=== PATIENT | female | born 1940 | race Caucasian/White ===

== ENCOUNTER 2021-06-03 15:58 | Emergency (ER) | payer MEDICARE ==
[~2021-06-03] VITALS: Ht 165.1 cm; Wt 54.5 kg
[2021-06-03 16:24] VITALS: BP 132/62
[2021-06-03 16:55] LABS: BASOPHILS % (AUTO) 0.4 % (0-1); EOSINOPHILS % (AUTO) 0.1 % (0-6); HEMATOCRIT 32.1 % (35.0-45.0); LYMPHOCYTES # (AUTO) 0.8 X10'3 (1.1-4.8); LYMPHOCYTES % (AUTO) 10.1 % (21-51); MEAN CORPUSCULAR HEMOGLOBIN 31.9 PG (27.0-31.0); MEAN CORPUSCULAR HGB CONC 34.4 g/dL (33.0-36.5); MEAN CORPUSCULAR VOLUME 92.9 FL (78-98); MEAN PLATELET VOLUME 8.1 FL (7.4-10.4); MONOCYTES # (AUTO) 0.5 X10'3 (0-0.9); MONOCYTES % (AUTO) 6.3 % (2-12); NEUTROPHILS # (AUTO) 6.3 X10'3 (1.8-7.7); NEUTROPHILS % (AUTO) 83.1 % (42-75); PLATELET COUNT 310 X10'3 (140-440); RED BLOOD COUNT 3.46 X10'6 (4.20-5.60); RED CELL DISTRIBUTION WIDTH 12.6 % (11.5-14.5); WHITE BLOOD COUNT 7.6 X10'3 (4.5-11.0)
[2021-06-03 17:08] LABS: PARTIAL THROMBOPLASTIN TIME 25 SECONDS (22-32)
[2021-06-03 17:17] LABS: ALANINE AMINOTRANSFERASE 26 U/L (12-78); ALBUMIN 3.8 G/DL (3.4-5.0); ALBUMIN/GLOBULIN RATIO 0.8 (1.1-1.5); ALKALINE PHOSPHATASE 83 IU/L (46-116); ANION GAP 11 (8-16); ASPARTATE AMINO TRANSFERASE 26 U/L (10-37); BILIRUBIN,TOTAL 0.5 MG/DL (0.1-1.0); BLOOD UREA NITROGEN 21 MG/DL (7-18); BUN/CREATININE RATIO 17.5 (6.6-38.0); CALCIUM 9.4 MG/DL (8.5-10.1); CHLORIDE 101 MMOL/L (99-107); GLUCOSE 112 MG/DL (70-104); MAGNESIUM 2.4 MG/DL (1.5-2.4); POTASSIUM 4.4 MMOL/L (3.5-5.1); SODIUM 138 MMOL/L (135-145); TOTAL CARBON DIOXIDE 26.2 MMOL/L (24-32); TOTAL PROTEIN 8.6 G/DL (6.4-8.2); eGFR 43 ML/MIN
[2021-06-03] MEDS ORDERED: normal saline 1000ml 1,000 ML IV ONE (17:45)
[2021-06-03 18:53] LABS: COLOR,URINE YELLOW (Yellow); GLUCOSE, URINE NEGATIVE (Neg); KETONES,URINE 15 mg/dl (Neg); LEUKOCYTE ESTERASE ,URINE NEGATIVE (Neg); NITRITES, URINE NEGATIVE (Neg); OCCULT BLOOD,URINE TRACE-INTACT (Neg); PROTEIN,URINE 30 mg/dl (Neg); UROBILINOGEN,URINE 0.2 E.U/dL (0.2-1.0)
[2021-06-03 19:04] LABS: UA COLLECTION TYPE CLN CATCH MIDSTREAM
[2021-06-03 19:06] LABS: BACTERIA,URINE FEW /HPF (Neg); CLARITY,URINE SLIGHTLY CLOUDY (Clear); HYALINE CASTS 0-3 /LPF (NEGATIVE); MUCUS STRANDS FEW /LPF (Neg); RBC,URINE 0-2 /HPF (0-2); SQUAMOUS EPITHELIAL CELL,UR FEW /LPF (FEW); WBC,URINE 0-4 /HPF (0-4)
== END 2021-06-03 20:40 | disposition home or self-care (01) ==
LOC: ER 16:01
DX: R55 Syncope and collapse (principal); M54.9 Dorsalgia, unspecified; R42 Dizziness and giddiness; R32 Unspecified urinary incontinence; I10 Essential (primary) hypertension; Z85.9 Personal history of malignant neoplasm, unspecified; Z86.2 Personal history of diseases of the blood and blood-forming organs and certain disorders involving the immune mechanism
CPT/HCPCS: 36415; 70450; 71045; 80053; 81001; 83735; 83880; 84484; 85025; 85610; 85730; 93005; 96360; 99285; J7030

== ENCOUNTER 2021-08-06 13:53 | Outpatient (CLI) | payer MEDICARE | END 2021-08-06 23:59 | disposition home or self-care (01) | LOC: RAD 13:53 | DX: R56.9 Unspecified convulsions (principal) | CPT/HCPCS: 95816 ==

== ENCOUNTER 2022-05-15 11:49 | Inpatient (IN) | payer MEDICARE ==
[~2022-05-15] VITALS: Ht 165.1 cm; Wt 51.4 kg
[2022-05-15 14:07] LABS: BASOPHILS % (AUTO) 0.4 % (0-1); EOSINOPHILS % (AUTO) 0.2 % (0-6); HEMATOCRIT 32.9 % (35.0-45.0); HEMOGLOBIN 10.6 g/dl (12.0-16.0); LYMPHOCYTES # (AUTO) 1.2 X10'3 (1.1-4.8); LYMPHOCYTES % (AUTO) 13.9 % (21-51); MEAN CORPUSCULAR HEMOGLOBIN 28.6 PG (27.0-31.0); MEAN CORPUSCULAR HGB CONC 32.3 g/dL (33.0-36.5); MEAN CORPUSCULAR VOLUME 88.6 FL (78-98); MEAN PLATELET VOLUME 8.1 FL (7.4-10.4); MONOCYTES # (AUTO) 0.9 X10'3 (0-0.9); MONOCYTES % (AUTO) 10.9 % (2-12); NEUTROPHILS # (AUTO) 6.5 X10'3 (1.8-7.7); NEUTROPHILS % (AUTO) 74.6 % (42-75); PLATELET COUNT 325 X10'3 (140-440); RED BLOOD COUNT 3.71 X10'6 (4.20-5.60); WHITE BLOOD COUNT 8.7 X10'3 (4.5-11.0)
[2022-05-15 14:20] LABS: APTT 29 SECONDS (22-32)
[2022-05-15 14:22] LABS: ALANINE AMINOTRANSFERASE 57 U/L (12-78); ALBUMIN 2.7 G/DL (3.4-5.0); ALBUMIN/GLOBULIN RATIO 0.6 (1.1-1.5); ALKALINE PHOSPHATASE 78 IU/L (46-116); ANION GAP 11 (8-16); ASPARTATE AMINO TRANSFERASE 54 U/L (10-37); BILIRUBIN,TOTAL 0.4 MG/DL (0.1-1.0); BLOOD UREA NITROGEN 38 MG/DL (7-18); CALCIUM 9.9 MG/DL (8.5-10.1); CHLORIDE 99 MMOL/L (99-107); CREATININE 0.95 MG/DL (0.40-0.90); GLUCOSE 109 MG/DL (70-104); MAGNESIUM 1.7 MG/DL (1.5-2.4); POTASSIUM 3.7 MMOL/L (3.5-5.1); SODIUM 134 MMOL/L (135-145); TOTAL CARBON DIOXIDE 24.1 MMOL/L (24-32); eGFR 56 ML/MIN
--- NOTE | 2022-05-15 14:40 | NUR ---
Pt stated that she has stopped eating for three days now
[2022-05-15 15:34] LABS: CLARITY,URINE SLIGHTLY CLOUDY (Clear); COLOR,URINE YELLOW (Yellow); GLUCOSE, URINE NEGATIVE (Neg); KETONES,URINE TRACE mg/dl (Neg); LEUKOCYTE ESTERASE ,URINE MODERATE (Neg); NITRITES, URINE NEGATIVE (Neg); OCCULT BLOOD,URINE NEGATIVE (Neg); PROTEIN,URINE NEGATIVE (Neg); UROBILINOGEN,URINE 0.2 E.U/dL (0.2-1.0)
[2022-05-15 15:39] LABS: UA COLLECTION TYPE STRAIGHT CATH
[2022-05-15 15:40] LABS: AMORPHOUS URATES 1+; BACTERIA,URINE 2+ /HPF (Neg); RBC,URINE NONE SEEN /HPF (0-2); SQUAMOUS EPITHELIAL CELL,UR FEW /LPF (FEW); WBC CLUMPS,URINE FEW /HPF (NEGATIVE)
--- NOTE | 2022-05-15 15:46 | NUR ---
sent a message to social work to come see the pt and family
--- NOTE | 2022-05-15 16:06 | NUR ---
When doing VS on the pt, Pt could not sit up in bed with help and pt could not stand without me holding her up. Pt had to lay down after standing for 30seconds
[2022-05-15] MEDS ORDERED: NO HOME MEDS (16:12)
[2022-05-15] MEDS ORDERED: CefTRIAXone/D5W-Rocephin 1gm 50 ML IV ONE (16:20)
[2022-05-15] MEDS ORDERED: ringers solution, lacted 1,000 ML IV ONE (16:20)
[2022-05-15] MEDS ORDERED: ondansetron/PF 4mg/2ml inj IV PRN (16:40)
[2022-05-15] MEDS ORDERED: potassium Cl 20 mEq SR tablet PO PRN ×2 (16:40)
[2022-05-15] MEDS ORDERED: magnesium hydroxide 30ml (MOM) UD suspension PO PRN (16:40)
[2022-05-15] MEDS ORDERED: magnesium Cl slow-release 64mg tablet PO PRN (16:40)
[2022-05-15] MEDS ORDERED: acetaminophen 325mg tablet PO PRN (16:40)
[2022-05-15] MEDS ORDERED: potassium Cl 40MEQ/1/2NS 520ml 520 ML IV PRN (16:40)
[2022-05-15] MEDS ORDERED: mag hydrox/Alum hydrox/simeth 30ml oral suspension PO PRN (16:40)
[2022-05-15] MEDS ORDERED: magnesium 4gm in 100ml NS 100 ML IV PRN (16:40)
[2022-05-15] MEDS: normal saline 1000ml 1,000 ML IV SCH ×2 (19:28→21:50)
[2022-05-15] MEDS: K and/or MAG REPLACEMENT MC SCH (20:00)
--- NOTE | 2022-05-15 20:00 | NUR ---
Patient in room [facility]. I have received report from RADHA Howard and had the opportunity to ask questions and assume patient care.
[2022-05-15] MEDS: docusate sod 100mg capsule PO SCH (20:06)
[2022-05-15 20:45] VITALS: BP 136/70
[2022-05-15 22:00] VITALS: BP 134/59
[2022-05-16 06:00] VITALS: BP 136/62
--- NOTE | 2022-05-16 06:25 | NUR ---
Problems reprioritized. Patient report given, questions answered & plan of care reviewed with RADHA Ross.
[2022-05-16 07:13] LABS: BASOPHILS % (AUTO) 0.3 % (0-1); EOSINOPHILS # (AUTO) 0.1 X10'3 (0-0.9); EOSINOPHILS % (AUTO) 1.5 % (0-6); HEMOGLOBIN 9.5 g/dl (12.0-16.0); LYMPHOCYTES # (AUTO) 1.2 X10'3 (1.1-4.8); LYMPHOCYTES % (AUTO) 14.6 % (21-51); MEAN CORPUSCULAR HEMOGLOBIN 28.4 PG (27.0-31.0); MEAN CORPUSCULAR HGB CONC 31.8 g/dL (33.0-36.5); MEAN CORPUSCULAR VOLUME 89.3 FL (78-98); MEAN PLATELET VOLUME 8.6 FL (7.4-10.4); MONOCYTES # (AUTO) 0.7 X10'3 (0-0.9); MONOCYTES % (AUTO) 9.4 % (2-12); NEUTROPHILS # (AUTO) 5.9 X10'3 (1.8-7.7); NEUTROPHILS % (AUTO) 74.2 % (42-75); PLATELET COUNT 293 X10'3 (140-440); RED BLOOD COUNT 3.36 X10'6 (4.20-5.60); RED CELL DISTRIBUTION WIDTH 16.6 % (11.5-14.5); WHITE BLOOD COUNT 7.9 X10'3 (4.5-11.0)
[2022-05-16 07:29] LABS: ALBUMIN 2.3 G/DL (3.4-5.0); ANION GAP 6 (8-16); BLOOD UREA NITROGEN 26 MG/DL (7-18); BUN/CREATININE RATIO 38.2 (6.6-38.0); CHLORIDE 101 MMOL/L (99-107); CREATININE 0.68 MG/DL (0.40-0.90); GLUCOSE 98 MG/DL (70-104); MAGNESIUM 1.6 MG/DL (1.5-2.4); POTASSIUM 3.8 MMOL/L (3.5-5.1); SODIUM 133 MMOL/L (135-145); TOTAL CARBON DIOXIDE 25.8 MMOL/L (24-32); eGFR 83 ML/MIN
[2022-05-16] MEDS: normal saline 1000ml 1,000 ML IV SCH (07:34)
[2022-05-16] MEDS: docusate sod 100mg capsule PO SCH (07:46)
[2022-05-16] MEDS: K and/or MAG REPLACEMENT MC SCH (07:46)
[2022-05-16] MEDS ORDERED: CefTRIAXone/D5W-Rocephin 1gm 50 ML IV SCH (08:00)
[2022-05-16 10:00] VITALS: BP 135/69
--- NOTE | 2022-05-16 11:26 | NUR ---
Noted pt BMI 18.9 per EMR; low given age. 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 Pt/grandchildren seen by RD at bedside; granddaughter Becca who is an RN at [employer] reports pt mainly drinks Boosts at home for kcal intake typically drinks multiple up to 6 or more each day but does not eat much solid foods. Per Becca, she buys groceries for pt and pantry/fridge fully stocked but solid foods intake declining since pt lives alone. 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 RD encouraged solid foods intake and educated pt on importance of balancing solid foods w/ ONS. Per pt, no food preferences or PO issues at this time. Pt is thin w/ visible mild temporal wasting though no prior scaled wt hx last reported wt 06/12 admit 54.55kg which would be up to ~6% UBW one year non-significant loss. Pt appears age-appropriate at this time likely maintains underweight status at baseline. RD encouraged pt/family to contact dietitian's office if further questions/concerns. Will monitor for nutrition intervention needs this admit. Addendum: 05/16/22 at [address] Amended: Links added.
[2022-05-16] MEDS ORDERED: CIPR-202 PO (12:24)
--- NOTE | 2022-05-16 14:03 | NUR ---
Patient stable and appropriate for discharge home with grandson. IV removed, all belongings taken from room. All discharge instructions and education given and reviewed with Ligia (grandchildren), all questions answered. New RX e-scripted to preferred pharmacy. Message left with case management to send home health referral when they are back.
--- NOTE | 2022-05-24 10:04 | NUR ---
Case Management DC follow up: Telephoned Patient, left VM with name, reason for call, and telephone number.
== END 2022-05-16 13:55 | disposition home health service (06) | DRG 690 ==
LOC: ER 11:49 → ED HOLD 16:40 → SUR 3N 20:30
PROVIDERS: ADMIT Family Medicine; ATTEND Family Medicine
DX: N39.0 Urinary tract infection, site not specified (principal); E44.0 Moderate protein-calorie malnutrition; Z68.1 Body mass index [BMI] 19.9 or less, adult; E86.0 Dehydration; I10 Essential (primary) hypertension; Z66 Do not resuscitate; Z20.822 Contact with and (suspected) exposure to COVID-19; N63.20 Unspecified lump in the left breast, unspecified quadrant; R29.6 Repeated falls; Z85.3 Personal history of malignant neoplasm of breast; Z90.12 Acquired absence of left breast and nipple
CPT/HCPCS: 36415; 71045; 80048; 80053; 81001; 83605; 83735; 84145; 85025; 85610; 85730; 86885; 86900; 86901; 87077; 87081; 87088; 87186; 87502; 87503; 87635; 93005; 96365; 97116; 97161; 97530; 99285; A4353; A4421; A6212; A6213; C9803; G0378; J0696; J7030; J7120

== ENCOUNTER 2022-06-02 10:05 | Inpatient (IN) | payer MEDICARE ==
[~2022-06-02] VITALS: Ht 160 cm; Wt 50.0 kg
[~2022-06-02 10:05] MED LIST: CIPR-202 PO
[2022-06-02 12:07] LABS: BASOPHILS % (AUTO) 0.4 % (0-1); EOSINOPHILS # (AUTO) 0.1 X10'3 (0-0.9); EOSINOPHILS % (AUTO) 1.1 % (0-6); HEMATOCRIT 33.3 % (35.0-45.0); HEMOGLOBIN 10.3 g/dl (12.0-16.0); LYMPHOCYTES # (AUTO) 1.1 X10'3 (1.1-4.8); MEAN CORPUSCULAR HEMOGLOBIN 27.6 PG (27.0-31.0); MEAN CORPUSCULAR VOLUME 88.9 FL (78-98); MEAN PLATELET VOLUME 7.9 FL (7.4-10.4); MONOCYTES # (AUTO) 0.4 X10'3 (0-0.9); MONOCYTES % (AUTO) 4.8 % (2-12); NEUTROPHILS # (AUTO) 6.7 X10'3 (1.8-7.7); NEUTROPHILS % (AUTO) 80.7 % (42-75); PLATELET COUNT 540 X10'3 (140-440); RED BLOOD COUNT 3.75 X10'6 (4.20-5.60); RED CELL DISTRIBUTION WIDTH 17.1 % (11.5-14.5); WHITE BLOOD COUNT 8.3 X10'3 (4.5-11.0)
[2022-06-02 12:33] LABS: ALANINE AMINOTRANSFERASE 24 U/L (12-78); ALBUMIN 2.4 G/DL (3.4-5.0); ALBUMIN/GLOBULIN RATIO 0.5 (1.1-1.5); ALKALINE PHOSPHATASE 63 IU/L (46-116); ANION GAP 12 (8-16); ASPARTATE AMINO TRANSFERASE 43 U/L (10-37); BILIRUBIN,TOTAL 0.4 MG/DL (0.1-1.0); BLOOD UREA NITROGEN 42 MG/DL (7-18); BUN/CREATININE RATIO 45.2 (6.6-38.0); CALCIUM 10.8 MG/DL (8.5-10.1); CHLORIDE 101 MMOL/L (99-107); CREATININE 0.93 MG/DL (0.40-0.90); GLUCOSE 102 MG/DL (70-104); POTASSIUM 3.8 MMOL/L (3.5-5.1); SODIUM 137 MMOL/L (135-145); TOTAL CARBON DIOXIDE 23.7 MMOL/L (24-32); TOTAL PROTEIN 7.2 G/DL (6.4-8.2); eGFR 58 ML/MIN
[2022-06-02 12:43] LABS: CLARITY,URINE CLEAR (Clear); COLOR,URINE YELLOW (Yellow); GLUCOSE, URINE NEGATIVE (Neg); KETONES,URINE TRACE mg/dl (Neg); LEUKOCYTE ESTERASE ,URINE NEGATIVE (Neg); NITRITES, URINE NEGATIVE (Neg); OCCULT BLOOD,URINE NEGATIVE (Neg); PH,URINE 5.5 (4.8-8.0); PROTEIN,URINE NEGATIVE (Neg); UROBILINOGEN,URINE 0.2 E.U/dL (0.2-1.0)
[2022-06-02 12:45] LABS: UA COLLECTION TYPE STRAIGHT CATH
[2022-06-02] MEDS ORDERED: normal saline 1000ml 1,000 ML IV ONE (13:15)
--- NOTE | 2022-06-02 15:35 | NUR ---
PATIENT IS INCONTINENT OF URINE AND CHANGED. PURE WICK APPLIED AND DIAPER INTACT. REPOSITIONED FOR COMFORT. PATIENT HAS STAGE 2 (DIME-SIZED) BREAKDOWN ON RIGHT HIP. SKIN EXCORIATION NOTED TO BUTTOCKS. PICTURES TO FOLLOW.
[2022-06-02] MEDS ORDERED: HYDROmorphone inj. 0.5 MG/0.5 ML DISP.SYRIN IV PRN (15:55)
[2022-06-02] MEDS ORDERED: HYDROmorphone/PF 0.2 MG/ML SYRINGE IV PRN (15:55)
[2022-06-02] MEDS ORDERED: morphine ORAL 5MG/0.25 ML (Conc. morphine) oral syringe PO PRN (15:55)
[2022-06-02] MEDS ORDERED: morphine 2 MG/ML inj. syringe IV PRN ×2 (15:55)
[2022-06-02] MEDS ORDERED: HYDROcodone/acetaminophen 10/325mg tab PO PRN (15:55)
[2022-06-02] MEDS ORDERED: LORazepam 2 mg/ml vial IV PRN (15:55)
[2022-06-02] MEDS ORDERED: TRAM50TA2 PO (18:51)
[2022-06-02] MEDS ORDERED: BUPR1PAT22 TOP (18:51)
--- NOTE | 2022-06-02 19:14 | NUR ---
PT MOVED ONTO INPATIENT BED WITH NO VERBAL COMPLAINTS NOR DISCOMFORT NOTED.
--- NOTE | 2022-06-02 19:22 | NUR ---
PT CO HEADACHE. PRN PO PAIN MED GIVEN
--- NOTE | 2022-06-02 23:15 | NUR ---
REPORT CALLED TO FLOOR NURSE. AWAITING ROOM NUMBER FOR TX.
--- NOTE | 2022-06-02 23:22 | NUR ---
Patient in room ED 14. I have received report from JOSE LUIS GARCIA and had the opportunity to ask questions and assume patient care.
[2022-06-03] VITALS: BP 139/92
--- NOTE | 2022-06-03 01:03 | NUR ---
Page Sent PAGER ID: [phone] MESSAGE: [phone] b samuel, pt has a buprenex patch that was placed at home 05/30 is it ok to leave this in place. it says good fro 7 days. [phone]
--- NOTE | 2022-06-03 01:07 | NUR ---
per dr boateng it is ok to leave the pain patch on the pt till it is ready to be removed which is q 7 days.
[2022-06-03] MEDS: morphine 10mg/0.5ml (conc. morphine) oral syringe PO PRN (02:15)
--- NOTE | 2022-06-03 02:50 | NUR ---
Problems reprioritized. Patient report given, questions answered & plan of care reviewed with Belle ordoñez.
--- NOTE | 2022-06-03 03:00 | NUR ---
Patient in room [facility]. I have received report from YADIRA and had the opportunity to ask questions and assume patient care. ASSUMED CARE OF PT. PT RESTING AT THIS TIME.
[2022-06-03 06:00] VITALS: BP 119/62
--- NOTE | 2022-06-03 06:54 | NUR ---
Problems reprioritized. Patient report given, questions answered & plan of care reviewed with
[2022-06-03] MEDS: LACTOSE-REDUCED FOOD (ENSURE PLUS-HP) VANILLA 237 ML BOTTLE PO SCH (08:00)
--- NOTE | 2022-06-03 08:59 | NUR ---
Noted pt admitted w/ DNR w/ comfort care for hospice placement per EMR. On Regular diet. Will continue to monitor. Addendum: 06/03/22 at [address] Amended: Links added.
--- NOTE | 2022-06-03 11:51 | NUR ---
Spoke to Kyle and he will send strawberry shakes up on meals and I ordered Ensure jasper for am tray
--- NOTE | 2022-06-03 14:42 | NUR ---
PRESSURE ULCER EDUCATION: DEFINITION: A pressure ulcer is an area of skin that breaks down when you stay in one position too long. The constant pressure against the skin reduces the blood flow to that area and the affected tissue dies. CAUSES: "Being bedridden or in a wheelchair "Fragile skin "Having a chronic condition, such as diabetes or vascular disease "Inability to move certain parts of your body without assistance "Older age "Incontinence of urine or stool SYMPTOMS: "A reddened area that DOES NOT turn white when pressed on - this can be the beginning of a pressure ulcer "A blister, deep sore or a crater - these can be advanced pressure ulcers FIRST AID: "Relieve the pressure on this area "Keep the area clean and dry "Call your primary doctor if you see any of the above symptoms "DO NOT massage the area "DO NOT use a donut shaped or ring shaped pillow- these actually interfere with the blood flow and cause complications PREVENTION: "Check for pressure ulcers everyday "Change position at least every two hours to relieve pressure "Use items that help relieve pressure- pillows, sheepskin, foam padding, and powders. "Keep skin clean and dry "Eat healthy well balanced meals "Exercise daily IF YOU SEE ANY OF THESE SYMPTOMS WHILE IN THE HOSPITAL - TELL YOUR NURSE IMMEDIATELY. IF YOU SEE ANY OF THESE SYMPTOMS WHILE AT HOME OR HAVE ANY QUESTIONS OR CONCERNS ABOUT PRESSURE ULCERS - CALL YOUR PRIMARY DOCTOR IMMEDIATELY. Addendum: 06/03/22 at 1443 by Trudy Leon RN Amended: Links added.
[2022-06-03] MEDS: HYDROcodone/acetaminophen 5mg/325mg tablet PO PRN (17:25)
[2022-06-03 18:00] VITALS: BP 108/80
--- NOTE | 2022-06-03 18:22 | NUR ---
Problems reprioritized. Patient report given, questions answered & plan of care reviewed with Marianne GARCIA.
[2022-06-04 06:00] VITALS: BP 126/80
[2022-06-04] MEDS: LACTOSE-REDUCED FOOD (ENSURE PLUS-HP) VANILLA 237 ML BOTTLE PO SCH (08:00)
[2022-06-04] MEDS: HYDROcodone/acetaminophen 5mg/325mg tablet PO PRN ×2 (09:19→23:06)
[2022-06-04 18:00] VITALS: BP 126/67
--- NOTE | 2022-06-04 18:47 | NUR ---
Problems reprioritized. Patient report given, questions answered & plan of care reviewed with Marianne GARCIA.
[2022-06-05 06:00] VITALS: BP 109/51
[2022-06-05] MEDS: LACTOSE-REDUCED FOOD (ENSURE PLUS-HP) VANILLA 237 ML BOTTLE PO SCH (08:00)
[2022-06-05] MEDS: morphine 10mg/0.5ml (conc. morphine) oral syringe PO PRN ×2 (09:31→15:41)
[2022-06-05 11:00] VITALS: BP 108/57
--- NOTE | 2022-06-05 16:15 | NUR ---
Granddaughter Becca at bedside assisting aide with rajesh care and packing personal belongings.
== END 2022-06-05 16:23 | DRG 598 ==
LOC: ER 10:06 → ED HOLD 16:37 → EDBEDREQ 21:24 → SUR 3N 23:55
PROVIDERS: ADMIT Family Medicine; ATTEND Family Medicine
DX: C50.919 Malignant neoplasm of unspecified site of unspecified female breast (principal); E44.0 Moderate protein-calorie malnutrition; Z68.1 Body mass index [BMI] 19.9 or less, adult; R64 Cachexia; E86.0 Dehydration; R62.7 Adult failure to thrive; Z20.822 Contact with and (suspected) exposure to COVID-19; Z66 Do not resuscitate; Z51.5 Encounter for palliative care; Z60.2 Problems related to living alone; L89.151 Pressure ulcer of sacral region, stage 1; L89.211 Pressure ulcer of right hip, stage 1; I10 Essential (primary) hypertension
CPT/HCPCS: 36415; 71045; 80053; 81003; 83880; 84145; 84484; 85025; 87081; 87811; 93005; 96360; 99285; A4353; A6212; A6213; G0378; J7030